=== PATIENT | female | born 1960 | race Caucasian/White ===

== ENCOUNTER 2017-02-12 12:21 | Emergency (ER) | payer OTHER ==
[2017-02-12 12:35] VITALS: TEMP 98.1; BMI 25.0
[2017-02-12] MEDS ORDERED: SODIUM CHLORIDE 0.9% 1000 ML INFUS.BAG IV ONE (14:03)
[2017-02-12 14:05] LABS: BASOPHIL 1.1 % (0-2.0); EOSINOPHIL 3.2 % (0-4.5); MCH 29.6 pg (25.7-33.7); MCHC 33.5 g/dl (32.0-36.0); MEAN CELL VOLUME 88.3 fl (80-96); MEAN PLT VOLUME 7.9 fl (7.5-11.1); PLATELET COUNT 193 K/MM3 (134-434); RDW 13.2 % (11.6-15.6); WHITE BLOOD COUNT 4.6 K/mm3 (4.0-10.0)
[2017-02-12 14:26] LABS: ALBUMIN 3.8 g/dl (3.4-5.0); ANION GAP 5 (8-16); BILIRUBIN,TOTAL 0.4 mg/dL (0.2-1.0); CALCIUM 9.4 mg/dL (8.5-10.1); CO2 32 mmol/L (21-32); GLUCOSE,RANDOM 86 mg/dL (74-106); SGOT/AST 21 U/L (15-37); SGPT/ALT 29 U/L (12-78); TOT PROT 7.9 g/dl (6.4-8.2)
[2017-02-12 14:34] LABS: ALK PHOS 74 U/L (45-117); THYROID STIMULATING HORMONE 0.97 uIU/ml (0.358-3.74)
--- NOTE | 2017-02-12 14:34 | PDOC ---
History of Present Illness - General History Source: Patient Exam Limitations: No Limitations - History of Present Illness Initial Comments: 02/12/17 14:36 Patient is a 56 year old female with a significant past medical history of heart murmur who presents to the ED with lightheadedness. Patient states that she went to bed around 1 am and woke up at 3 am after not being able to sleep and drink warm milk. Patient states that when she woke up at 6 am she had difficulty focusing her vision and noticed that her speech has been sluggish. Patient states that she felt low and slow and lightheaded which has mostly resolved but she still feels sluggish but denies any headache, weakness, room spinning or LOC. As per her sister in law she notes that her speech is much slower. Patient also reports SOB and chest pressure. FH: mother head bleed and DM <Mae Fiore - Last Filed: 02/12/17 14:35> - General History Source: Patient Exam Limitations: No Limitations <Vidya Hamilton - Last Filed: 02/12/17 18:17> - General Chief Complaint: Lightheaded Stated Complaint: SOB, DIZZINESS NIH Stroke Scale - Last Known Well Date/Time & Onset Date Last Known Well: 02/12/17 Time Last Known Well: 01:00 - Initial Evaluation Level of consciousness: Alert Ask patient the month and their age: Answers both correctly Ask patient to open & close eyes; make fist and let go: Obeys both correctly Best gaze (horizontal eye movement): Normal Visual field testing: No visual field loss Facial paresis (Show teeth/raise eyebrows/close eyes tight): Normal symmetrical movement Motor Function: Left Arm: Normal Motor Function: Right Arm: Normal (extends arm 90 (or 45) degrees for 10 seconds without drift Motor Function: Left Leg: Normal (extends leg 30 degrees for 5 seconds without drift) Motor Function: Right Leg: Normal (extends leg 30 degrees for 5 seconds without drift) Limb Ataxia: No ataxia Sensory(Use pinprick test arms,legs,trunk,face/side to side): Normal Best language (Describe picture, name items, read sentences): No Aphasia Dysarthria (read several words): Normal articulation Extinction and Inattention: No abnormality - Total Score NIH Stroke Scale Score: 0 <Vidya Hamilton - Last Filed: 02/12/17 18:17> Past History <Mae Fiore - Last Filed: 02/12/17 14:35> - Past Medical History Cardiac Disorders: Yes (HEART MURMUR) - Psycho/Social/Smoking Cessation Hx Anxiety: No Suicidal Ideation: No Smoking History: Never smoked Hx Alcohol Use: No Drug/Substance Use Hx: No Substance Use Type: None <JoyVidya - Last Filed: 02/12/17 18:17> - Past Medical History Allergies/Adverse Reactions: Allergies Allergy/AdvReac Type Severity Reaction Status Date / Time No Known Allergies Allergy Verified 02/12/17 12:35 Home Medications: Ambulatory Orders Cephalexin [Keflex] 500 mg PO TID #21 capsule 02/12/17 Review of Systems - Review of Systems Able to Perform ROS?: Yes Comments:: 02/12/17 14:36 GENERAL/CONSTITUTIONAL: +generalized weakness. No fever or chills. HEAD, EYES, EARS, NOSE AND THROAT: +vision changes. No ear pain or discharge. No sore throat. GASTROINTESTINAL: No nausea, vomiting, diarrhea or constipation. GENITOURINARY: No dysuria, frequency, or change in urination. CARDIOVASCULAR: No chest pain or shortness of breath. RESPIRATORY: No cough, wheezing, or hemoptysis. MUSCULOSKELETAL: No joint or muscle swelling or pain. No neck or back pain. SKIN: No rash NEUROLOGIC: +lightheadedness. No headache, vertigo, loss of consciousness, or change in strength/sensation. ENDOCRINE: No increased thirst. No abnormal weight change. HEMATOLOGIC/LYMPHATIC: No anemia, easy bleeding, or history of blood clots. ALLERGIC/IMMUNOLOGIC: No hives or skin allergy. <Mae Fiore - Last Filed: 02/12/17 14:35> *Physical Exam - Vital Signs Last Vital Signs Temp Pulse Resp BP Pulse Ox 98.1 F 81 20 155/96 98 02/12/17 12:32 02/12/17 12:32 02/12/17 12:32 02/12/17 12:32 02/12/17 12:32 - Physical Exam Comments: 02/12/17 14:38 GENERAL: Awake, alert, and fully oriented, in no acute distress HEAD: No signs of trauma EYES: PERRLA, EOMI, sclera anicteric, conjunctiva clear ENT: Auricles normal inspection, nares patent, Moist mucosa NECK: Normal ROM, supple, no lymphadenopathy, JVD, or masses LUNGS: Breath sounds equal, clear to auscultation bilaterally. No wheezes, and no crackles HEART: Regular rate and rhythm, normal S1 and S2, no murmurs, rubs or gallops ABDOMEN: Soft, nontender, normoactive bowel sounds. No guarding, no rebound. No masses EXTREMITIES: Normal range of motion, no edema. No clubbing or cyanosis. No cords, erythema, or tenderness NEUROLOGICAL: (+)Cranial nerves intact, 5/5 strength, Sensation intact, Visual morrow intact. Normal speech SKIN: Warm, Dry, normal turgor, no rashes or lesions noted. <Mae Fiore - Last Filed: 02/12/17 14:35> - Vital Signs Last Vital Signs Temp Pulse Resp BP Pulse Ox 98.1 F 81 20 155/96 98 02/12/17 12:32 02/12/17 12:32 02/12/17 12:32 02/12/17 12:32 02/12/17 12:32 <Vidya Hamilton - Last Filed: 02/12/17 18:17> Heart Score/ECG Review #1 02/12/17 14:38 Sinus bradycardia at [address] and T wave abnormality T wave inversion at lead 3 <Mae Fiore - Last Filed: 02/12/17 14:35> ED Treatment Course - LABORATORY CBC & Chemistry Diagram: 02/12/17 14:00 02/12/17 14:00 - ADDITIONAL ORDERS Additional order review: Laboratory Results 02/12/17 14:00 Sodium 139 Potassium 4.2 Chloride 102 Carbon Dioxide 32 Anion Gap 5 L BUN 20 H Creatinine 1.0 Creat Clearance w eGFR 57.78 Random Glucose 86 Calcium 9.4 Total Bilirubin 0.4 AST 21 ALT 29 Total Protein 7.9 Albumin 3.8 - Medications Given in the ED: ED Medications Discontinued Medications Generic Name Dose Route Start Last Admin Trade Name Freq PRN Reason Stop Dose Admin Sodium Chloride 1,000 ml 02/12/17 14:03 02/12/17 14:13 Normal Saline - IV 02/12/17 14:04 1,000 ml ONCE ONE Administration <Mae Fiore - Last Filed: 02/12/17 14:35> - LABORATORY CBC & Chemistry Diagram: 02/12/17 14:00 02/12/17 14:00 - RADIOLOGY Radiology Studies Ordered: Category Date Time Status HEAD CT (STROKE) [CT] Stat CT Scan 02/12/17 13:26 Ordered - Medications Given in the ED: ED Medications Discontinued Medications Generic Name Dose Route Start Last Admin Trade Name Yvonne PRN Reason Stop Dose Admin Sodium Chloride 1,000 ml 02/12/17 14:03 02/12/17 14:13 Normal Saline - IV 02/12/17 14:04 1,000 ml ONCE ONE Administration <Vidya Hamilton - Last Filed: 02/12/17 18:17> Medical Decision Making - Medical Decision Making 02/12/17 14:28 56 yo F with h/o no pmhx ( mitral valve prolapse) here wtih c/o feeling ' off" today. states was having difficulty sleeping last pm. went to bed around 1 am felt normal, awoke at 3 am for warm milk, noted she felt hazy. when awoke at 6 am, tried speaking felt her tongue was heavy and words weren't clear. she called her sister in law, who agress pt words weren't as clear as normal. no focal weakness, feels tired overal. since that time, has almost completely resolved, but she still feels sluggish. also c/o feeling lightheaded. when was occuring, she also noted her eyesight felt hazy, as if she was going to faint. no cp nos palpitations . no vertigo. family h/o with intracerebral bleed , and diabetes. on exam awake alert lungs clear facies symmetric, heart rrr nomrg. abd soft NT ND. skin warm and dry. nuero speech, clear, alert and oriented x 3. CN II - XII intact. strength 5/5 throughout. sensation intact throughout, visual morrow are intact. NIH stroke scale zero plan: differential dehydration anemia, TIA, new onset diabetes, electrolyte abnormality. plan ct head labs ua ekg. pt not tpa candidate as over 6 hours since started, and resolving. <Vidya Hamilton - Last Filed: 02/12/17 18:17> *DC/Admit/Observation/Transfer - Attestations Scribe Attestion: 02/12/17 14:39 Documentation prepared by LEE Catherine, acting as medical radiation tech for Vidya Hamilton MD. <Mae Fiore - Last Filed: 02/12/17 14:35> - Discharge Dispostion Admit: No <Vidya Hamilton - Last Filed: 02/12/17 18:17> Diagnosis at time of Disposition: UTI (urinary tract infection) - Discharge Dispostion Disposition: HOME Condition at time of disposition: Improved - Prescriptions Prescriptions: Cephalexin [Keflex] 500 mg PO TID #21 capsule - Referrals Referrals: STAFF,NOT ON [Primary Care Provider] - Suraj Spears MD [Staff Physician] - - Patient Instructions Printed Discharge Instructions: Urinary Tract Infection, DI for Transient Ischemic Attack Additional Instructions: you should follow up with Dr. Spears the nuerologist , see referral number to schedule. return for worsening change to speech, or any concerns. you have a urinary tract infection. you should take keflex 500 mg three times daily x 7 days. follow up with your regular doctor. all of your test today are normal. - Post Discharge Activity Work/School Note: Back to Work
[2017-02-12 15:23] LABS: URINE APPEARANCE CLEAR; URINE BILIRUBIN NEGATIVE (NEGATIVE); URINE COLOR RED; URINE GLUCOSE (UA) NEGATIVE (NEGATIVE); URINE KETONE NEGATIVE (NEGATIVE); URINE NITRITE NEGATIVE (NEGATIVE); URINE PROTEIN NEGATIVE (NEGATIVE); URINE UROBILINOGEN NEGATIVE E.U./dl (0.2-1.0)
[2017-02-12 15:29] LABS: URINE BLOOD 1+ (NEGATIVE); URINE LEUK ESTERASE 2+ (NEGATIVE)
[2017-02-12 15:31] LABS: URINE MUCUS RARE; URINE RBC 3 /hpf (0-3); URINE WBC 10 /hpf (3-5)
[2017-02-12] MEDS ORDERED: CEFTRIAXONE 1 GM in DEXTROSE 5%-WATER - 50 ML IVPB ONE (15:56)
--- NOTE | 2017-02-12 17:23 | EKG ---
Test Reason : Blood Pressure : / mmHG Vent. Rate : 052 BPM Atrial Rate : 052 BPM P-R Int : 156 ms QRS Dur : 076 ms QT Int : 454 ms P-R-T Axes : 023 026 028 degrees QTc Int : 422 ms SINUS BRADYCARDIA NONSPECIFIC ST AND T WAVE ABNORMALITY WHEN COMPARED WITH ECG OF 07-NOV-2006 07:45, T WAVE INVERSION NOW EVIDENT IN ANTERIOR LEADS Confirmed by MD JOCELYN, CARLA ([id number]) on 02/12/2017 5:23:42 PM Referred By: Confirmed By:CARLA BANKS MD
[2017-02-12 18:07] VITALS: BP 138/62; PULSE 55
== END 2017-02-12 18:23 | disposition home or self-care (01) ==
LOC: JER 12:21 → FER 12:21 → JER 18:23
PROC: 3E02329 Introduction of Other Anti-infective into Muscle, Percutaneous Approach (ICD-10-PCS; principal; 2017-02-12)
PROC: 3E0337Z Introduction of Electrolytic and Water Balance Substance into Peripheral Vein, Percutaneous Approach (ICD-10-PCS; 2017-02-12)
DX: N39.0 Urinary tract infection, site not specified (principal); I34.1 Nonrheumatic mitral (valve) prolapse; R01.1 Cardiac murmur, unspecified
CPT/HCPCS: 36415; 70450-TC; 71010-TC; 80053; 81003; 81015; 84443; 85025; 87086; 93005; 93880-TC; 99284-25

== ENCOUNTER 2018-12-09 15:12 | Emergency (ER) | payer OTHER ==
[2018-12-09 15:23] VITALS: BP 146/89; PULSE 69; TEMP 98.1; BMI 25.3
--- NOTE | 2018-12-09 15:26 | PDOC ---
Rapid Medical Evaluation Time Seen by Provider: 12/09/18 15:18 Medical Evaluation: Allergies Allergy/AdvReac Type Severity Reaction Status Date / Time No Known Allergies Allergy Verified 02/12/17 12:35 12/09/18 15:22 I have performed a brief in-person evaluation of this patient. The patient presents with a chief complaint of: URI sxs last week. Went to clinic Friday and given pump and zpack but states her sxs are not better. Admits to not using pump. Also using homeopathioc meds w/ no relief. No sob, CP , f/c. No h/o PNA, non-smoker. Denies sig pmhx Pertinent physical exam findings:Stable and in NAD but coughing intermittently in RME I have ordered the following: The patient will proceed to the ED for further evaluation Discharge Disposition - Diagnosis URI (upper respiratory infection) Qualifiers: URI type: unspecified viral URI Qualified Code(s): J06.9 - Acute upper respiratory infection, unspecified - Referrals - Patient Instructions - Post Discharge Activity
[2018-12-09] MEDS ORDERED: ALBUTEROL SO4 2.5/IPRATROPIUM 0.5 INH SOL 3 ML VIAL.NEB. NEB ONE ×2 (16:53→17:05)
--- NOTE | 2018-12-09 16:53 | PDOC ---
History of Present Illness - General Chief Complaint: Cold Symptoms Stated Complaint: Cough and Sinus Time Seen by Provider: 12/09/18 15:18 History Source: Patient Exam Limitations: No Limitations Past History - Travel Traveled outside of the country in the last 30 days: No Close contact w/someone who was outside of country & ill: No - Past Medical History Allergies/Adverse Reactions: Allergies Allergy/AdvReac Type Severity Reaction Status Date / Time No Known Allergies Allergy Verified 02/12/17 12:35 Home Medications: Ambulatory Orders Cephalexin [Keflex] 500 mg PO TID #21 capsule 02/12/17 Cardiac Disorders: Yes (HEART MURMUR) COPD: No - Suicide/Smoking/Psychosocial Hx Smoking History: Unknown if ever smoked Hx Alcohol Use: No Drug/Substance Use Hx: No Substance Use Type: None Review of Systems - Review of Systems Able to Perform ROS?: Yes Comments:: 12/09/18 16:52 CONSTITUTIONAL: Absent: fever, chills, diaphoresis, generalized weakness, malaise, loss of appetite HEENT: Absent: rhinorrhea, nasal congestion, throat pain, throat swelling, difficulty swallowing, mouth swelling, ear pain, eye pain, visual Changes CARDIOVASCULAR: Absent: chest pain, loss of consciousness, palpitations, irregular heart rate, peripheral edema RESPIRATORY: Present: cough Absent: shortness of breath, dyspnea with exertion, orthopnea, wheezing, stridor, hemoptysis GASTROINTESTINAL: Absent: abdominal pain, abdominal distension, nausea, vomiting, diarrhea, constipation, melena, hematochezia GENITOURINARY: Absent: dysuria, frequency, urgency, hesitancy, hematuria, flank pain, genital pain MUSCULOSKELETAL: Absent: myalgia, arthralgia, joint swelling SKIN: Absent: rash, itching, pallor HEMATOLOGIC/IMMUNOLOGIC: Absent: easy bleeding, easy bruising, lymphadenopathy, frequent infections ENDOCRINE: Absent: unexplained weight gain, unexplained weight loss, heat intolerance, cold intolerance NEUROLOGIC: Absent: headache, focal weakness or paresthesias, dizziness, unsteady gait, seizure, mental status changes, bladder or bowel incontinence PSYCHIATRIC: Absent: anxiety, depression, suicidal or homicidal ideation, hallucinations. Is the patient limited Ukrainian proficient: No *Physical Exam - Vital Signs Last Vital Signs Temp Pulse Resp BP Pulse Ox 98.1 F 69 20 146/89 97 12/09/18 15:18 12/09/18 15:18 12/09/18 15:18 12/09/18 15:18 12/09/18 15:18 - Physical Exam Comments: 12/09/18 16:52 GENERAL: Well developed, well nourished. Awake and alert. No acute distress. HEENT: Normocephalic, atraumatic. PERRLA, EOMI. No conjunctival pallor. Sclera are non- icteric. Moist mucous membranes. Oropharynx is clear. NECK: Supple. Full ROM. No JVD. Carotid pulses 2+ and symmetric, without bruits. No thyromegaly. No lymphadenopathy. CARDIOVASCULAR: Regular rate and rhythm. No murmurs, rubs, or gallops. Distal pulses are 2+ and symmetric. PULMONARY: No evidence of respiratory distress. Lungs clear to auscultation bilaterally. No wheezing, rales or rhonchi. SKIN: Warm and dry. Normal capillary refill. No rashes. No jaundice. NEUROLOGICAL: Alert, awake, appropriate. Cranial nerves 2-12 intact. No deficits to light touch and temperature in face, upper extremities and lower extremities. No motor deficits in the in face, upper extremities and lower extremities. Normoreflexic in the upper and lower extremities. Normal speech. Toes are down- going bilaterally. Gait is normal without ataxia. PSYCHIATRIC: Cooperative. Good eye contact. Appropriate mood and affect. Medical Decision Making - Medical Decision Making 12/09/18 17:23 the patient is a 58-year-old female no past medical history who presents to the ER today for a cough for 3 days. She states that she was initially seen at [facility] on 06 December and prescribed an albuterol inhaler. She states that she decided not to take it and she was using garlic supplements in its place. She states that this has not helped and her cough has gotten worse. She states that it is hard to catch her breath. Denies fevers, chills, chest pain, nausea, vomiting and diarrhea. A/P: URI On exam lungs are clear to auscultation bilaterally with no wheezing rales or rhonchi. S1-S2 present, regular rate and rhythm X-ray ordered of the chest. No acute pathology noted. One DuoNeb given with relief of symptoms. Advised patient to continue her albuterol inhaler as an outpatient and follow up with her primary care doctor. Discharge home I discussed the physical exam findings, ancillary test results and final diagnoses with the patient. I answered all of the patient's questions. The patient was satisfied with the care received and felt comfortable with the discharge plan and treatment plan. The Patient agrees to follow up with the primary care physician/specialist within 24-72 hours. Return precautions were given. *DC/Admit/Observation/Transfer Diagnosis at time of Disposition: URI (upper respiratory infection) Qualifiers: URI type: unspecified viral URI Qualified Code(s): J06.9 - Acute upper respiratory infection, unspecified - Discharge Dispostion Disposition: HOME Condition at time of disposition: Stable Decision to Admit order: No - Referrals Referrals: Zain Mooney MD [Staff Physician] - - Patient Instructions Printed Discharge Instructions: DI for Viral Upper Respiratory Infection -- Adult Additional Instructions: You have an upper respiratory infection, or the common cold. Your chest x-ray is normal Please take Motrin 800 mg every 8 hours as needed for pain not to exceed 3000 mg a day. Use your albuterol inhaler as previously directed Drink plenty of fluids. Cough drops and warm tea may help your symptoms as well. Please follow up with her primary care doctor this week. Return to the emergency department if you have difficulty breathing, shortness of breath, worsening pain, nausea, vomiting or if you have any changes in your symptoms - Post Discharge Activity Forms/Work/School Notes: Back to Work
== END 2018-12-09 17:42 | disposition home or self-care (01) ==
LOC: JERFT 15:12
PROC: 3E0F7GC Introduction of Other Therapeutic Substance into Respiratory Tract, Via Natural or Artificial Opening (ICD-10-PCS; principal; 2018-12-09)
DX: J06.9 Acute upper respiratory infection, unspecified (principal); R01.1 Cardiac murmur, unspecified
CPT/HCPCS: 71046-TC-FY; 99281-25

== ENCOUNTER 2019-03-10 15:06 | Emergency (ER) | payer OTHER ==
--- NOTE | 2019-03-10 15:13 | PDOC ---
Rapid Medical Evaluation Chief Complaint: Lightheaded Time Seen by Provider: 03/10/19 15:13 Medical Evaluation: Allergies Allergy/AdvReac Type Severity Reaction Status Date / Time No Known Allergies Allergy Verified 02/12/17 12:35 03/10/19 15:13 I have performed a brief in-person evaluation of this patient. The patient presents with a chief complaint of:dizziness this am. Seen at and sent to ED. H/o MVP Pertinent physical exam findings:stable and well alejandra I have ordered the following:ekg/labs The patient will proceed to the ED for further evaluation. 03/10/19 15:19 Discharge Disposition - Diagnosis Dizziness - Discharge Dispostion Condition at time of disposition: Stable - Referrals - Patient Instructions - Post Discharge Activity
[2019-03-10 15:17] VITALS: TEMP 97.6; BMI 26.5
--- NOTE | 2019-03-10 16:29 | PDOC ---
History of Present Illness - General Chief Complaint: Lightheaded Stated Complaint: DIZZINESS Time Seen by Provider: 03/10/19 15:13 History Source: Patient Exam Limitations: No Limitations - History of Present Illness Initial Comments: 58 yo F PMH mitral valve prolapse, p/w dizziness and SOB. This morning, drank two coffees, unusual for her, and felt a dizziness like "things were getting out of focus and blurry, like a camera". Took a BP, was 160s/80s. Went to urgent care, who encouraged her to go to the ED. Currently, her dizziness has resolved, but she feels like she in unable to breathe normally. She endorses some chest tightness, with some L sided chest pain this morning "that felt like bubbles coming up", that has since resolved. Further complains of orthopnea for over a year, but has not seen a boat hand in 2 years. Denies MCKNIGHT, nausea/vomiting, constipation/diarrhea, fever/chills, neurological deficits. Endorses SOB, orthopnea, and increased urinary frequency without burning. 03/10/19 16:24 Past History - Past Medical History Allergies/Adverse Reactions: Allergies Allergy/AdvReac Type Severity Reaction Status Date / Time No Known Allergies Allergy Verified 02/12/17 12:35 Home Medications: Ambulatory Orders Cephalexin [Keflex] 500 mg PO BID #14 capsule 03/10/19 Cardiac Disorders: Yes (HEART MURMUR) COPD: No - Suicide/Smoking/Psychosocial Hx Smoking History: Never smoked Have you smoked in the past 12 months: No Information on smoking cessation initiated: No Hx Alcohol Use: No Drug/Substance Use Hx: No Substance Use Type: None Review of Systems - Review of Systems Constitutional: No: Chills, Fever, Weakness HEENTM: No: Eye Pain, Throat Pain, Difficulty Swallowing Respiratory: Yes: Orthopnea, Shortness of Breath. No: Cough Cardiac (ROS): No: Chest Pain, Edema, Irregular Heart Rate, Lightheadedness ABD/GI: No: Abdominal Distended, Abd. Pain w/ defecation, Constipated, Diarrhea , Nausea, Vomiting : Yes: Frequency. No: Burning, Dysuria, Discharge, Flank Pain Musculoskeletal: No: Back Pain Neurological: Yes: Dizziness ("room going out of focus"). No: Headache, Numbness *Physical Exam - Vital Signs Last Vital Signs Temp Pulse Resp BP Pulse Ox 97.6 F 58 L 18 135/80 100 03/10/19 15:13 03/10/19 15:13 03/10/19 15:13 03/10/19 15:13 03/10/19 15:13 - Physical Exam General Appearance: Yes: Nourished, Appropriately Dressed. No: Apparent Distress HEENT: positive: EOMI, MANOLO, Normal ENT Inspection, Normal Voice, Symmetrical, Pharynx Normal Neck: positive: Normal Thyroid, Supple. negative: Tender Respiratory/Chest: positive: Lungs Clear, Normal Breath Sounds. negative: Chest Tender, Respiratory Distress, Accessory Muscle Use Cardiovascular: positive: Regular Rhythm, Regular Rate, Murmur Gastrointestinal/Abdominal: positive: Normal Bowel Sounds, Flat, Soft. negative : Tender Musculoskeletal: positive: Normal Inspection. negative: CVA Tenderness Extremity: positive: Normal Capillary Refill, Normal Inspection, Normal Range of Motion. negative: Tender Integumentary: positive: Normal Color, Dry, Warm Neurologic: positive: kettle operator head II-XII NML intact, Fully Oriented, Alert, Normal Mood/ Affect, Normal Response, Motor Strength 12/13 ED Treatment Course - LABORATORY CBC & Chemistry Diagram: 03/10/19 17:00 03/10/19 17:00 Medical Decision Making - Medical Decision Making EKG CBC trop CXR cardiac US 03/10/19 17:02 CBC CMP wnl 03/10/19 17:56 2+ leuk esterase 03/10/19 19:10 CXR reviewed, no acute pathology. 03/10/19 19:16 *DC/Admit/Observation/Transfer Diagnosis at time of Disposition: Dizziness, UTI (urinary tract infection) - Discharge Dispostion Disposition: HOME Condition at time of disposition: Improved Decision to Admit order: No - Prescriptions Prescriptions: Cephalexin [Keflex] 500 mg PO BID #14 capsule - Referrals - Patient Instructions Printed Discharge Instructions: DI for Urinary Tract Infection (UTI) Additional Instructions: You were seen with dizziness. Your tests showed that you have a urinary tract infection. Please take your Keflex twice a day. Please make an appointment with your PCP and your boat hand for further outpatient management. - Post Discharge Activity Forms/Work/School Notes: Back to Work
--- NOTE | 2019-03-10 17:00 | PDOC ---
Documentation entered by Noman Calabrese SCRIBE, acting as scribe for Kaycee Nelson DO. Kaycee Nelson DO: This documentation has been prepared by the Bharati peng Elijah, SCRIBE, under my direction and personally reviewed by me in its entirety. I confirm that the documentation accurately reflects all work, treatment, procedures, and medical decision making performed by me. Attending Attestation - Resident Resident Name: Riaz Herman - ED Attending Attestation I have performed the following: I have examined & evaluated the patient, The case was reviewed & discussed with the resident, I agree w/resident's findings & plan - HPI HPI: 03/10/19 16:54 Patient is a 58 year old female with a significant past medical history of mitral valve prolapse who presents to the ED with dizziness and SOB beginning x6 hours ago. Patient notes that she had two cups of coffee this morning and started to feel as if the room was out of focus and had trouble breathing. Patient associated chest pain with SOB this morning but now only has discomfort. Denies cough, leg swelling , and recent travel. Allergies: NKA - Physicial Exam PE: 03/10/19 16:54 GENERAL: Awake, alert, and fully oriented, in no acute distress HEAD: No signs of trauma EYES: PERRLA, EOMI, sclera anicteric, conjunctiva clear ENT: Auricles normal inspection, hearing grossly normal, nares patent, oropharynx clear without exudates. Moist mucosa NECK: Normal ROM, supple, no lymphadenopathy, JVD, or masses LUNGS: Breath sounds equal, clear to auscultation bilaterally. No wheezes, and no crackles HEART: Regular rate and rhythm, normal S1 and S2, no murmurs, rubs or gallops ABDOMEN: Soft, nontender, normoactive bowel sounds. No guarding, no rebound. No masses EXTREMITIES: Normal range of motion, no edema. No clubbing or cyanosis. No cords, erythema, or tenderness NEUROLOGICAL: Cranial nerves II through XII grossly intact. Normal speech, normal gait SKIN: Warm, Dry, normal turgor, no rashes or lesions noted. - Medical Decision Making 03/10/19 16:55 I, Dr. Kaycee Nelson DO, attest that this document has been prepared under my direction and personally reviewed by me in its entirety. I further attest, that it accurately reflects all work, treatment, procedures and medical decision -making performed by me. 03/10/19 16:55 a/p: 58yo female with hx of mvp with an episode of feeling lightheaded earlier today assoc with L sided cp - no radiation -cp currently resolved -felt sob earlier -episode was at 10am -pt denies cough/f/c -pt with increased stress from recent deaths in her family and in her parish -pt also with increased caffeine use -pt is nontoxic in appearance -will send labs, ekg, cxr -pt currently denies lightheaded or dizziness 03/10/19 17:53 cbc reviewed and nonacute trop neg 03/10/19 19:18 cxr clear pt with uti will treat with abx 03/10/19 20:15 pt feeling better resident discussed labs and imaging stable for dc to home Heart Score/ECG Review - ECG Intrepretation Comment:: 03/10/19 16:55 sinus britt at 58, nl axis, nl interval, no acute st/t wave findings
[2019-03-10 17:31] LABS: BASO % 0.7 % (0-2.0); EOS % 2.2 % (0-4.5); HEMATOCRIT 38.8 % (32.4-45.2); HEMOGLOBIN 13.3 GM/dL (10.7-15.3); LYMPH % 37.9 % (8-40); MCH 30.1 pg (25.7-33.7); MCHC 34.2 g/dl (32.0-36.0); MEAN CELL VOLUME 88.1 fl (80-96); MONO % 6.9 % (3.8-10.2); NEUT % 52.3 % (42.8-82.8); PLATELET COUNT 189 K/MM3 (134-434); RBC 4.41 M/mm3 (3.60-5.2); RDW 13.1 % (11.6-15.6); WHITE BLOOD COUNT 5.6 K/mm3 (4.0-10.0)
[2019-03-10 17:54] LABS: ALBUMIN 3.7 g/dl (3.4-5.0); BILIRUBIN,TOTAL 0.5 mg/dL (0.2-1); BLOOD UREA NITROGEN 16.8 mg/dL (7-18); CALCIUM 9.5 mg/dL (8.5-10.1); N-TERMINAL BNP 108.8 pg/ml (5-125); POTASSIUM 3.8 mmol/L (3.5-5.1); TOT PROT 7.6 g/dl (6.4-8.2)
[2019-03-10] MEDS ORDERED: SODIUM CHLORIDE 1,000 ML IV STA (18:06)
[2019-03-10 18:51] LABS: EPI CELLS 1.2 /HPF (0-5/HPF); HYALINE CASTS 0 /lpf (0-8); PH,URINE 7.5 (5.0-8.0); URINE APPEARANCE CLEAR; URINE BILIRUBIN NEGATIVE (NEGATIVE); URINE COLOR YELLOW; URINE GLUCOSE (UA) NEGATIVE (NEGATIVE); URINE KETONE NEGATIVE (NEGATIVE); URINE LEUK ESTERASE 2+ (NEGATIVE); URINE NITRITE NEGATIVE (NEGATIVE); URINE PROTEIN NEGATIVE (NEGATIVE); URINE RBC 2 /hpf (0-4); URINE UROBILINOGEN 0.2 mg/dL (0.2-1.0); URINE WBC 4 /hpf (0-5)
[2019-03-10 20:47] VITALS: BP 144/105; PULSE 72
--- NOTE | 2019-03-11 14:02 | EKG ---
Test Reason : Blood Pressure : / mmHG Vent. Rate : 056 BPM Atrial Rate : 056 BPM P-R Int : 158 ms QRS Dur : 078 ms QT Int : 464 ms P-R-T Axes : 051 039 046 degrees QTc Int : 447 ms SINUS BRADYCARDIA POSSIBLE LEFT ATRIAL ENLARGEMENT BORDERLINE ECG WHEN COMPARED WITH ECG OF 12-FEB-2017 14:15, NO SIGNIFICANT CHANGE WAS FOUND Confirmed by LALI TINOCO MD ([id number]) on 03/11/2019 2:02:28 PM Referred By: Confirmed By:LALI TINOCO MD
== END 2019-03-10 20:55 | disposition home or self-care (01) ==
LOC: JER 15:06
PROC: 3E0337Z Introduction of Electrolytic and Water Balance Substance into Peripheral Vein, Percutaneous Approach (ICD-10-PCS; principal; 2019-03-10)
DX: N39.0 Urinary tract infection, site not specified (principal); R42 Dizziness and giddiness; R01.1 Cardiac murmur, unspecified
CPT/HCPCS: 36415; 71046-TC-FY; 80053; 81003; 82550; 83880; 84443; 84484; 85025; 93005; 93010; 99283-25; J7030

== ENCOUNTER 2020-12-17 09:41 | Inpatient (IN) | payer OTHER ==
[2020-12-17 10:14] LABS: PH,URINE 6.5 (5.0-8.0); URINE APPEARANCE TURBID; URINE BILIRUBIN NEGATIVE (NEGATIVE); URINE COLOR YELLOW; URINE GLUCOSE (UA) NEGATIVE (NEGATIVE); URINE KETONE NEGATIVE (NEGATIVE); URINE LEUK ESTERASE 3+ (NEGATIVE); URINE NITRITE POSITIVE (NEGATIVE); URINE PROTEIN 1+ (NEGATIVE); URINE UROBILINOGEN 0.2 mg/dL (0.2-1.0)
[2020-12-17 10:20] VITALS: BMI 21.4
[2020-12-17 11:19] LABS: VENOUS BASE EXCESS 1.4 mmol/L (-2-2); VENOUS O2 SATURATION 83.6 % (70-80); VENOUS PCO2 49.9 mmHg (38-52); VENOUS PH 7.36 (7.310-7.410)
[2020-12-17 11:23] LABS: BASO % 0.4 % (0-2.0); EOS % 1.3 % (0-4.5); HEMOGLOBIN 10.3 GM/dL (10.7-15.3); LYMPH % 5.7 % (8-40); MCH 30.6 pg (25.7-33.7); MCHC 33.4 g/dl (32.0-36.0); MEAN CELL VOLUME 91.5 fl (80-96); MEAN PLT VOLUME 10.8 fl (7.5-11.1); MONO % 5.6 % (3.8-10.2); PLATELET COUNT 176 K/MM3 (134-434); RBC 3.38 M/mm3 (3.60-5.2); RDW 14.8 % (11.6-15.6); WHITE BLOOD COUNT 12.9 K/mm3 (4.0-10.0)
[2020-12-17 11:30] LABS: INR 1.27 (0.83-1.09); PROTHROMBIN TIME (PATIENT) 15.3 SEC (9.7-13.0)
[2020-12-17 11:33] LABS: ACTIVATED PTT 47.5 SECONDS (25.2-36.5)
[2020-12-17 11:37] LABS: BLOOD UREA NITROGEN 31.2 mg/dL (7-18); CALCIUM 8.6 mg/dL (8.5-10.1)
[2020-12-17 11:38] LABS: ALBUMIN 2.7 g/dl (3.4-5.0)
[2020-12-17 11:40] LABS: CREATININE 1.2 mg/dL (0.55-1.3)
[2020-12-17 11:42] LABS: BILIRUBIN,TOTAL 0.3 mg/dL (0.2-1); TOT PROT 6.4 g/dl (6.4-8.2)
[2020-12-17] MEDS ORDERED: PIPERACILLIN/TAZOB 4.5 GM 4.5 GM in DEXTROSE 5%-WATER 100 ML IVPB ONE (11:43)
[2020-12-17] MEDS ORDERED: VANCOMYCIN 1 GM in D5W (PRE-DOCKED) 1,000 MG/250 ML IVPB ONE (11:43)
[2020-12-17] MEDS ORDERED: AZITHROMYCIN IVPB 500 MG in DEXTROSE 5%-WATER - 250 ML IVPB ONE (11:43)
[2020-12-17 11:46] LABS: LACTIC ACID 2.8 mmol/L (0.4-2.0)
[2020-12-17] MEDS ORDERED: SODIUM CHLORIDE 0.9% 500 ML INFUS.BAG IV ONE (11:46)
[2020-12-17] MEDS ORDERED: DEXTROSE 50%-WATER - 25 GM/50 ML VIAL IVPUSH ONE (11:50)
[2020-12-17] MEDS ORDERED: VANCOMYCIN 1 GRAM (PRE-DOCKED) 1,000 MG/250 ML BAG IVPB ONE (11:56)
[2020-12-17] MEDS ORDERED: DEXTROSE 50%-WATER 25 GM/50 ML DISP.SYRIN ONE (11:56)
[2020-12-17] MEDS ORDERED: AZITHROMYCIN IVPB 500 MG/250 ML BAG IVPB ONE (11:57)
[2020-12-17] MEDS ORDERED: PIPERACILLIN/TAZOB 3.375 GM 3.375 GM/50 ML BAG IVPB ONE (11:57)
[2020-12-17] MEDS: hydrALAZINE HCL 10 MG TABLET GT SCH ×2 (17:08→22:08)
[2020-12-17] MEDS: DEXTROSE 5%-0.45% SALINE 1,000 ML IV SCH ×2 (17:08→18:02)
[2020-12-17] MEDS ORDERED: DEXTROSE 5%-WATER 100 ML IVPB ONE (17:57)
[2020-12-17] MEDS ORDERED: PIPERACILLIN/TAZOBACTAM 4.5 GM VIAL IVPB ONE (17:57)
[2020-12-17] MEDS: PIPERACILLIN/TAZOB 4.5 GM 4.5 GM in DEXTROSE 5%-WATER 100 ML IVPB SCH (18:01)
[2020-12-17 20:17] LABS: EPI CELLS 16.6 /uL (0-25.1); URINE RBC 59.8 /uL (0-23.9); URINE WBC 6066.5 /uL (0-25.8)
[2020-12-17 20:18] LABS: HYALINE CASTS 6.59 /uL (0-3.1); URINE BACTERIA 28503.3 /uL (0-1359)
[2020-12-17] MEDS: levETIRAcetam 500 MG/5 ML ORAL SOLUTION (UNIT-DOSE CUPS) GT SCH (22:08)
[2020-12-17] MEDS ORDERED: ACETAMINOPHEN 1000 MG/100 ML VIAL (NON FORMULARY) IVPB ONE (23:59)
[2020-12-18] MEDS ORDERED: PIPERACILLIN/TAZOBACTAM 4.5 GM VIAL IVPB ONE ×2 (01:13→09:54)
[2020-12-18] MEDS ORDERED: DEXTROSE 5%-WATER 100 ML IVPB ONE ×2 (01:13→09:54)
[2020-12-18] MEDS: PIPERACILLIN/TAZOB 4.5 GM 4.5 GM in DEXTROSE 5%-WATER 100 ML IVPB SCH ×2 (02:00→10:01)
[2020-12-18] MEDS: hydrALAZINE HCL 10 MG TABLET GT SCH ×4 (03:00→21:35)
[2020-12-18 08:22] LABS: CALCIUM 8.8 mg/dL (8.5-10.1)
[2020-12-18 08:23] LABS: ALBUMIN 2.8 g/dl (3.4-5.0); BLOOD UREA NITROGEN 28.4 mg/dL (7-18)
[2020-12-18 08:26] LABS: CREATININE 1.3 mg/dL (0.55-1.3)
[2020-12-18 08:27] LABS: BILIRUBIN,TOTAL 0.5 mg/dL (0.2-1); TOT PROT 6.6 g/dl (6.4-8.2)
[2020-12-18] MEDS ORDERED: VANCOMYCIN 1 GM in D5W (PRE-DOCKED) 1,000 MG/250 ML IVPB ONE (08:44)
[2020-12-18] MEDS ORDERED: ACETAMINOPHEN 1000 MG/100 ML VIAL (NON FORMULARY) IVPB ONE (08:45)
[2020-12-18] MEDS ORDERED: LACTATED RINGERS SOLUTION 500 ML IV SCH (09:15)
[2020-12-18] MEDS: ENOXAPARIN NA (PORCINE) 40 MG/0.4 ML DISP.SYRIN SQ SCH (10:00)
[2020-12-18] MEDS: CARVEDILOL 6.25 MG TABLET (FP) GT SCH (10:00)
[2020-12-18] MEDS: levETIRAcetam 500 MG/5 ML ORAL SOLUTION (UNIT-DOSE CUPS) GT SCH ×2 (10:01→22:32)
[2020-12-18] MEDS: SODIUM CHLORIDE 1,000 ML IV SCH (12:00)
[2020-12-18] MEDS ORDERED: AZTREONAM 1 GM VIAL (RESTRICTED TO ID) ONE (14:01)
[2020-12-18] MEDS ORDERED: DEXTROSE 5%-WATER - 50 ML IVPB ONE (14:01)
[2020-12-18 14:11] LABS: ARTERIAL BLD GAS O2 SATURATION 82.3 mmHg (95-98); ARTERIAL BLOOD GAS BASE EXCESS -5.8 mmol/L (-2-2); ARTERIAL BLOOD GAS PO2 54.1 mmHg (80-100); ARTERIAL BLOOD GAS pH 7.242 (7.350-7.450)
[2020-12-18] MEDS ORDERED: MORPHINE SULFATE 2 MG/ML VIAL IVPUSH ONE ×2 (14:25→19:56)
[2020-12-18] MEDS ORDERED: MORPHINE SULFATE 2 MG/ML VIAL ONE (14:25)
[2020-12-18] MEDS: AZTREONAM 1 GM in DEXTROSE 5%-WATER - 50 ML IVPB SCH ×2 (14:28→18:20)
[2020-12-18 15:59] LABS: BASO % 0.1 % (0-2.0); EOS % 0.2 % (0-4.5); HEMATOCRIT 25.8 % (32.4-45.2); HEMOGLOBIN 8.7 GM/dL (10.7-15.3); LYMPH % 5.4 % (8-40); MCH 30.7 pg (25.7-33.7); MCHC 33.6 g/dl (32.0-36.0); MEAN CELL VOLUME 91.3 fl (80-96); MEAN PLT VOLUME 10.1 fl (7.5-11.1); MONO % 2.1 % (3.8-10.2); NEUT % 92.2 % (42.8-82.8); PLATELET COUNT 117 K/MM3 (134-434); RBC 2.82 M/mm3 (3.60-5.2); RDW 14.8 % (11.6-15.6); WHITE BLOOD COUNT 10.4 K/mm3 (4.0-10.0)
[2020-12-18] MEDS: MORPHINE SULFATE 2 MG/ML VIAL IVPUSH PRN ×2 (16:35→22:34)
[2020-12-18 16:43] LABS: ANISOCYTOSIS 0; MACROCYTOSIS 0; OVALOCYTE 1+; PLATELET ESTIMATE NORMAL; ROULEAU 1+
[2020-12-18] MEDS: BACLOFEN 10 MG TABLET (FP) PEG SCH ×2 (17:09→22:32)
[2020-12-18] MEDS ORDERED: PIPERACILLIN/TAZOB 4.5 GM 4.5 GM in DEXTROSE 5%-WATER 100 ML IVPB SCH (18:00)
[2020-12-18] MEDS ORDERED: PT OWN MED DRAWER 7, Y5N ONE (20:23)
[2020-12-18] MEDS: VANCOMYCIN 1 GRAM (PRE-DOCKED) 1,000 MG/250 ML BAG IVPB SCH (21:35)
[2020-12-19] MEDS ORDERED: AZTREONAM 1 GM VIAL (RESTRICTED TO ID) ONE ×3 (01:09→17:48)
[2020-12-19] MEDS ORDERED: DEXTROSE 5%-WATER - 50 ML IVPB ONE ×3 (01:09→17:49)
[2020-12-19] MEDS: AZTREONAM 1 GM in DEXTROSE 5%-WATER - 50 ML IVPB SCH ×3 (01:20→18:24)
[2020-12-19] MEDS ORDERED: MORPHINE SULFATE 2 MG/ML VIAL IVPUSH ONE (01:35)
[2020-12-19] MEDS: hydrALAZINE HCL 10 MG TABLET GT SCH ×2 (03:41→09:36)
[2020-12-19] MEDS: MORPHINE SULFATE 2 MG/ML VIAL IVPUSH PRN ×2 (03:45→09:50)
[2020-12-19] MEDS: BACLOFEN 10 MG TABLET (FP) PEG SCH ×3 (06:43→22:09)
[2020-12-19 08:15] LABS: BASO % 0.3 % (0-2.0); EOS % 0.1 % (0-4.5); HEMATOCRIT 24.6 % (32.4-45.2); HEMOGLOBIN 8.3 GM/dL (10.7-15.3); LYMPH % 6.2 % (8-40); MCHC 33.8 g/dl (32.0-36.0); MEAN CELL VOLUME 91.7 fl (80-96); NEUT % 90.4 % (42.8-82.8); PLATELET COUNT 115 K/MM3 (134-434); RBC 2.68 M/mm3 (3.60-5.2); RDW 14.6 % (11.6-15.6); WHITE BLOOD COUNT 10.5 K/mm3 (4.0-10.0)
[2020-12-19 08:21] LABS: CHLORIDE 116 mmol/L (98-107); SODIUM 147 mmol/L (136-145)
[2020-12-19 08:26] LABS: ANION GAP 8 MMOL/L (8-16); BLOOD UREA NITROGEN 28.6 mg/dL (7-18); CALCIUM 7.7 mg/dL (8.5-10.1); CO2 22 mmol/L (21-32)
[2020-12-19 08:29] LABS: CREATININE 1.1 mg/dL (0.55-1.3); SGOT/AST 663 U/L (15-37); SGPT/ALT 593 U/L (13-61)
[2020-12-19 08:31] LABS: BILIRUBIN,TOTAL 0.4 mg/dL (0.2-1); TOT PROT 5.1 g/dl (6.4-8.2)
[2020-12-19 08:32] LABS: ALK PHOS 136 U/L (45-117)
[2020-12-19] MEDS ORDERED: ACETAMINOPHEN INJECTION 100 ML IVPB ONE (08:34)
[2020-12-19 08:39] LABS: ALBUMIN 2.1 g/dl (3.4-5.0); GLUCOSE,RANDOM 41 mg/dL (74-106)
[2020-12-19] MEDS: ACETAMINOPHEN 1000 MG/100 ML VIAL (NON FORMULARY) IVPB PRN ×2 (08:40→21:07)
[2020-12-19] MEDS ORDERED: DEXTROSE 50%-WATER - 25 GM/50 ML VIAL IVPUSH ONE (09:00)
[2020-12-19] MEDS ORDERED: DEXTROSE 50%-WATER - 25 GM/50 ML VIAL ONE (09:11)
[2020-12-19] MEDS ORDERED: PT OWN MED DRAWER 7, Y5N ONE ×2 (09:30→13:17)
[2020-12-19] MEDS: levETIRAcetam 500 MG/5 ML ORAL SOLUTION (UNIT-DOSE CUPS) GT SCH ×2 (09:35→22:09)
[2020-12-19] MEDS: ENOXAPARIN NA (PORCINE) 40 MG/0.4 ML DISP.SYRIN SQ SCH (09:35)
[2020-12-19] MEDS: VANCOMYCIN 1 GRAM (PRE-DOCKED) 1,000 MG/250 ML BAG IVPB SCH ×2 (09:35→21:06)
[2020-12-19] MEDS: CARVEDILOL 6.25 MG TABLET (FP) GT SCH (09:36)
[2020-12-19] MEDS: FLUCONAZOLE 40 MG/ML SUSPENSION PEG SCH (09:37)
[2020-12-19] MEDS: DEXTROSE 5%-NORMAL SALINE 1,000 ML IV SCH (12:35)
[2020-12-19] MEDS: MORPHINE SULFATE/0.9% NACL/PF 100 MG/100 ML BAG IVPB SCH (13:31)
[2020-12-19] MEDS: SODIUM CHLORIDE 1,000 ML IV SCH (16:18)
[2020-12-20] MEDS ORDERED: AZTREONAM 1 GM VIAL (RESTRICTED TO ID) ONE ×3 (01:10→17:43)
[2020-12-20] MEDS ORDERED: DEXTROSE 5%-WATER - 50 ML IVPB ONE ×3 (01:11→17:43)
[2020-12-20] MEDS: AZTREONAM 1 GM in DEXTROSE 5%-WATER - 50 ML IVPB SCH ×3 (01:15→18:39)
[2020-12-20] MEDS: BACLOFEN 10 MG TABLET (FP) PEG SCH ×3 (05:57→21:37)
[2020-12-20 06:44] LABS: BASO % 0.4 % (0-2.0); EOS % 0.8 % (0-4.5); HEMATOCRIT 26.8 % (32.4-45.2); HEMOGLOBIN 9.1 GM/dL (10.7-15.3); LYMPH % 8.3 % (8-40); MCH 30.8 pg (25.7-33.7); MCHC 33.9 g/dl (32.0-36.0); MEAN CELL VOLUME 90.8 fl (80-96); MONO % 2.8 % (3.8-10.2); NEUT % 87.7 % (42.8-82.8); PLATELET COUNT 150 K/MM3 (134-434); RBC 2.95 M/mm3 (3.60-5.2); RDW 15.2 % (11.6-15.6); WHITE BLOOD COUNT 14.2 K/mm3 (4.0-10.0)
[2020-12-20 07:30] LABS: CALCIUM 7.9 mg/dL (8.5-10.1)
[2020-12-20 07:31] LABS: ALBUMIN 2.2 g/dl (3.4-5.0); BLOOD UREA NITROGEN 36.2 mg/dL (7-18)
[2020-12-20 07:34] LABS: CREATININE 1.5 mg/dL (0.55-1.3)
[2020-12-20 07:35] LABS: BILIRUBIN,TOTAL 0.5 mg/dL (0.2-1); TOT PROT 5.5 g/dl (6.4-8.2)
[2020-12-20] MEDS: VANCOMYCIN 1 GRAM (PRE-DOCKED) 1,000 MG/250 ML BAG IVPB SCH ×2 (09:15→21:37)
[2020-12-20] MEDS: FLUCONAZOLE 40 MG/ML SUSPENSION PEG SCH (10:17)
[2020-12-20] MEDS: CARVEDILOL 6.25 MG TABLET (FP) GT SCH (12:01)
[2020-12-20] MEDS: levETIRAcetam 500 MG/5 ML ORAL SOLUTION (UNIT-DOSE CUPS) GT SCH ×2 (12:01→21:37)
[2020-12-20] MEDS ORDERED: PT OWN MED DRAWER 7, Y5N ONE ×2 (14:48→20:58)
[2020-12-20] MEDS: ENOXAPARIN NA (PORCINE) 40 MG/0.4 ML DISP.SYRIN SQ SCH (14:56)
[2020-12-20] MEDS: DEXTROSE 5%-NORMAL SALINE 1,000 ML IV SCH ×2 (14:57→18:39)
[2020-12-20] MEDS: MORPHINE SULFATE/0.9% NACL/PF 100 MG/100 ML BAG IVPB SCH ×2 (14:57→18:42)
[2020-12-21] MEDS ORDERED: AZTREONAM 1 GM VIAL (RESTRICTED TO ID) ONE ×2 (00:44→12:26)
[2020-12-21] MEDS ORDERED: DEXTROSE 5%-WATER - 50 ML IVPB ONE ×2 (00:44→12:27)
[2020-12-21] MEDS: AZTREONAM 1 GM in DEXTROSE 5%-WATER - 50 ML IVPB SCH ×2 (01:21→12:30)
[2020-12-21] MEDS ORDERED: PT OWN MED DRAWER 7, Y5N ONE ×5 (05:22→21:13)
[2020-12-21] MEDS: BACLOFEN 10 MG TABLET (FP) PEG SCH ×3 (06:17→21:31)
[2020-12-21 07:17] LABS: BASO % 0.2 % (0-2.0); EOS % 1.9 % (0-4.5); HEMATOCRIT 25.5 % (32.4-45.2); HEMOGLOBIN 8.5 GM/dL (10.7-15.3); LYMPH % 2.3 % (8-40); MCH 30.5 pg (25.7-33.7); MCHC 33.2 g/dl (32.0-36.0); MEAN PLT VOLUME 9.9 fl (7.5-11.1); MONO % 3.3 % (3.8-10.2); NEUT % 92.3 % (42.8-82.8); PLATELET COUNT 125 K/MM3 (134-434); RBC 2.77 M/mm3 (3.60-5.2); RDW 15.2 % (11.6-15.6); WHITE BLOOD COUNT 11.8 K/mm3 (4.0-10.0)
[2020-12-21 07:40] LABS: BLOOD UREA NITROGEN 26.3 mg/dL (7-18)
[2020-12-21 07:41] LABS: CALCIUM 8.2 mg/dL (8.5-10.1)
[2020-12-21 07:47] LABS: TOT PROT 4.8 g/dl (6.4-8.2)
[2020-12-21 07:50] LABS: ALBUMIN 1.6 g/dl (3.4-5.0); BILIRUBIN,TOTAL 0.4 mg/dL (0.2-1)
[2020-12-21] MEDS: ENOXAPARIN NA (PORCINE) 40 MG/0.4 ML DISP.SYRIN SQ SCH (09:58)
[2020-12-21] MEDS: levETIRAcetam 500 MG/5 ML ORAL SOLUTION (UNIT-DOSE CUPS) GT SCH ×2 (09:58→21:30)
[2020-12-21] MEDS: CARVEDILOL 6.25 MG TABLET (FP) GT SCH (09:58)
[2020-12-21] MEDS: DEXTROSE 5%-NORMAL SALINE 1,000 ML IV SCH ×2 (10:12→12:31)
[2020-12-21] MEDS: FLUCONAZOLE 40 MG/ML SUSPENSION PEG SCH (11:37)
[2020-12-21] MEDS ORDERED: MORPHINE SULFATE/0.9% NACL/PF 100 MG/100 ML BAG IVPB SCH (11:44)
[2020-12-21] MEDS: MORPHINE SULFATE/0.9% NACL/PF 100 MG/100 ML BAG IVPB SCH ×2 (11:52→17:21)
[2020-12-21] MEDS: ACETAMINOPHEN 1000 MG/100 ML VIAL (NON FORMULARY) IVPB PRN ×2 (12:08→18:11)
[2020-12-21 12:28] LABS: ANISOCYTOSIS 1+; MACROCYTOSIS 1+; OVALOCYTE 1+; PLATELET ESTIMATE DECREASED; TOXIC GRANULATION 2+
[2020-12-21] MEDS: VANCOMYCIN 1 GRAM (PRE-DOCKED) 1,000 MG/250 ML BAG IVPB SCH (13:05)
[2020-12-21] MEDS ORDERED: POTASSIUM CHLORIDE ORAL LIQUID 20 MEQ/15 ML GT ONE (16:11)
[2020-12-22 00:53] VITALS: BP 107/64; PULSE 93; TEMP 99.7
== END 2020-12-22 04:05 | disposition expired | DRG 720 ==
LOC: JER 09:41 → JERBED 14:29 → J4W 17:22 → J4S 12-19 16:00
PROVIDERS: ADMIT Internal Medicine; ATTEND Internal Medicine
PROC: 3E0G76Z Introduction of Nutritional Substance into Upper GI, Via Natural or Artificial Opening (ICD-10-PCS; principal; 2020-12-17)
DX: A41.9 Sepsis, unspecified organism (principal); J96.01 Acute respiratory failure with hypoxia; J69.0 Pneumonitis due to inhalation of food and vomit; E87.2 Acidosis; E87.0 Hyperosmolality and hypernatremia; N17.9 Acute kidney failure, unspecified; I48.91 Unspecified atrial fibrillation; G81.90 Hemiplegia, unspecified affecting unspecified side; Z93.1 Gastrostomy status; D64.9 Anemia, unspecified; N39.0 Urinary tract infection, site not specified
CPT/HCPCS: 36415; 36600; 71045-TC-FY; 80053; 80074; 81003; 82550; 82553; 82803; 82962; 83605; 84484; 85025; 85610; 85730; 87040; 87086; 87186; 87804; 93005; 93010; 94660; 99285-25; C9803; J0131; J0475; U0003; U0005